=== PATIENT | male | born 1980 | race Caucasian/White ===

== ENCOUNTER → 2019-05-11 | Outpatient (REF) | payer OTHER ==
[2019-05-11 12:35] LABS: MALB URINE SIEMENS 6.8 MG/L; MAU/CREAT RATIO 4.9 MCG/MG (0.0-30.0)
== END ==
LOC: M SFHCLERA 09:55
PROVIDERS: ATTEND Nurse Practitioner Family
DX: I10 Essential (primary) hypertension (principal)